=== PATIENT | female | born 2000 | race Caucasian/White ===

== ENCOUNTER 2022-09-28 17:52 | Emergency (ER) | payer BC ==
[2022-09-28 18:42] VITALS: BP 114/73; PULSE 655; RESP 18; TEMP 98.8; BMI 16.7
== END 2022-09-28 19:25 | disposition home or self-care (01) ==
LOC: FER 17:52
DX: S60.221A Contusion of right hand, initial encounter (principal); W22.8XXA Striking against or struck by other objects, initial encounter; Y92.9 Unspecified place or not applicable
CPT/HCPCS: 73110-TC-RT-FY; 73130-TC-RT-FY; 99283-25

== ENCOUNTER 2022-11-18 21:48 | Emergency (ER) | payer BC ==
[2022-11-18 21:57] VITALS: BP 122/84; PULSE 120; RESP 20; BMI 17.2
[2022-11-18] MEDS ORDERED: AZITHROMYCIN 500 MG TABLET PO ONE (22:08)
[2022-11-18] MEDS ORDERED: AZITHROMYCIN 500 MG TABLET ONE (22:08)
[2022-11-18] MEDS ORDERED: ACETAMINOPHEN 500 MG TABLET (FP) PO ONE (22:10)
[2022-11-18] MEDS ORDERED: ACETAMINOPHEN 500 MG TABLET (FP) ONE (22:13)
[2022-11-18 22:22] VITALS: TEMP 100.6
== END 2022-11-18 22:23 | disposition home or self-care (01) ==
LOC: FER 21:48
DX: J02.9 Acute pharyngitis, unspecified (principal); R50.9 Fever, unspecified; H92.09 Otalgia, unspecified ear
CPT/HCPCS: 99283-25

== ENCOUNTER 2023-01-09 20:21 | Emergency (ER) | payer BC ==
[2023-01-09 20:29] VITALS: BMI 18.7
[2023-01-09] MEDS ORDERED: ACETAMINOPHEN 1000 MG/100 ML BAG IVPB ONE (20:55)
[2023-01-09] MEDS ORDERED: SODIUM CHLORIDE 1,000 ML IV STA (20:55)
[2023-01-09] MEDS ORDERED: ACETAMINOPHEN INJECTION 100 ML IVPB ONE (20:57)
[2023-01-09 21:00] LABS: HEMATOCRIT 43.8 % (32.4-45.2); HEMOGLOBIN 14.4 G/dL (10.7-15.3); MCHC 32.9 g/dl (32.0-36.0); MEAN CELL VOLUME 97.2 fl (80-96); MEAN PLT VOLUME 9.1 fl (7.5-11.1); PLATELET COUNT 207.6 10^3/uL (134-434); RBC 4.51 10^6/uL (3.60-5.2); RDW 13.4 % (11.6-15.6); WHITE BLOOD COUNT 10.5 10^3/uL (4.0-10.8)
[2023-01-09 21:18] LABS: ALBUMIN 4.7 g/dl (3.4-5.0); BILIRUBIN,TOTAL 0.9 mg/dl (0.2-1); CALCIUM 9.6 mg/dl (8.5-10.1); CREATININE 0.7 mg/dl (0.6-1.3); POTASSIUM 3.9 mmol/L (3.5-5.1); TOT PROT 6.9 g/dl (6.4-8.2)
[2023-01-09 21:22] LABS: PLATELET ESTIMATE ADEQUATE
[2023-01-09 21:36] LABS: HCG,QUALITATIVE URINE Negative
[2023-01-09] MEDS ORDERED: morphine CARPU-JECT 4 MG/1 ML DISP.SYRIN IVPUSH ONE (21:37)
[2023-01-09 21:38] LABS: EPITHELIAL CELLS FEW /hpf
[2023-01-09] MEDS ORDERED: morphine SULFATE 4 MG/ML VIAL ONE (21:38)
[2023-01-09 21:50] VITALS: BP 95/56; PULSE 100; RESP 16; TEMP 99.9
== END 2023-01-09 23:37 | disposition home or self-care (01) ==
LOC: FER 20:21
PROC: 3E033NZ Introduction of Analgesics, Hypnotics, Sedatives into Peripheral Vein, Percutaneous Approach (ICD-10-PCS; principal; 2023-01-09)
PROC: 3E033GC Introduction of Other Therapeutic Substance into Peripheral Vein, Percutaneous Approach (ICD-10-PCS; 2023-01-09)
PROC: 3E0337Z Introduction of Electrolytic and Water Balance Substance into Peripheral Vein, Percutaneous Approach (ICD-10-PCS; 2023-01-09)
DX: R10.9 Unspecified abdominal pain (principal); R11.0 Nausea; K52.9 Noninfective gastroenteritis and colitis, unspecified
CPT/HCPCS: 36415; 74177-TC; 80053; 81003; 81015; 84703; 85027; 87086; 99285-25; Q9967

== ENCOUNTER 2023-01-10 15:55 | Emergency (ER) | payer BC ==
[2023-01-10] MEDS ORDERED: FAMOTIDINE 20 MG/50 ML IVPB 20 MG/50 ML MG IVPB ONE ×2 (16:16→16:19)
[2023-01-10] MEDS ORDERED: MAG HYDROX/AL HYDROX/SIMETH 30 ML UNIT-DOSE CUP PO ONE (16:16)
[2023-01-10] MEDS ORDERED: ACETAMINOPHEN 1000 MG/100 ML BAG IVPB ONE (16:16)
[2023-01-10] MEDS ORDERED: ONDANSETRON 4 MG/2 ML VIAL IVPUSH ONE (16:16)
[2023-01-10] MEDS ORDERED: LACTATED RINGERS SOLUTION 1000 ML INFUS.BAG IV ONE (16:17)
[2023-01-10] MEDS ORDERED: ONDANSETRON 4 MG/2 ML VIAL ONE (16:19)
[2023-01-10] MEDS ORDERED: ACETAMINOPHEN INJECTION 100 ML IVPB ONE (16:19)
[2023-01-10] MEDS ORDERED: MAG HYDROX/AL HYDROX/SIMETH 30 ML UNIT-DOSE CUP ONE (16:19)
[2023-01-10 16:43] VITALS: BP 127/75; PULSE 58; RESP 18; BMI 18.8
[2023-01-10 17:17] VITALS: TEMP 103.5
== END 2023-01-10 18:24 | disposition home or self-care (01) ==
LOC: FER 15:55
PROC: 3E033GC Introduction of Other Therapeutic Substance into Peripheral Vein, Percutaneous Approach (ICD-10-PCS; principal; 2023-01-10)
PROC: 3E033NZ Introduction of Analgesics, Hypnotics, Sedatives into Peripheral Vein, Percutaneous Approach (ICD-10-PCS; 2023-01-10)
PROC: 3E033GC Introduction of Other Therapeutic Substance into Peripheral Vein, Percutaneous Approach (ICD-10-PCS; 2023-01-10)
DX: R11.2 Nausea with vomiting, unspecified (principal); R50.9 Fever, unspecified; Z20.822 Contact with and (suspected) exposure to COVID-19
CPT/HCPCS: 0241U-QW; 99284-25